=== PATIENT | male | born 1945 | race Caucasian/White ===

== ENCOUNTER → 2016-05-30 | Outpatient (CLI) | payer MEDICARE, BC ==
--- NOTE | 2016-05-30 13:09 | Diagnostic Imaging Report ---
Indications: Abdominal pain, aortic stenosis, abdominal aortic aneurysm Technique: Transabdominal real-time grayscale and duplex Doppler imaging of the upper abdomen and retroperitoneum was performed. Findings: Comparison: None. Liver 19 cm in length. Normal Surface contour, mildly increased and coarsened parenchymal echogenicity. Contains multiple circumscribed anechoic foci up to 3.5 cm. No solid focal lesions. Gallbladder unremarkable. No intraluminal stones or sludge. No mural thickening or adjacent fluid collections. Sonographic Al sign not reported.. Bile ducts normal caliber. Common bile duct 5 mm. Pancreas visualized portions unremarkable. Spleen 16 cm, no focal lesions.. Right kidney contains multiple circumscribed anechoic cortical foci up to 0.6 cm, otherwise unremarkable. Left kidney contains multiple circumscribed anechoic cortical foci up to 3.6 cm, otherwise unremarkable. Abdominal aorta, intrahepatic portion of inferior vena cava patent, normal caliber. Duplex Doppler imaging demonstrates antegrade flow in splenic, portal, hepatic veins. No ascites. IMPRESSION: No evidence of abdominal aortic aneurysm Hepatosplenomegaly with suggestion of chronic hepatocellular disease. Hepatic, bilateral renal cortical cysts
== END | disposition home or self-care (01) ==
LOC: ULS 09:25
DX: R10.9 Unspecified abdominal pain (principal); R16.2 Hepatomegaly with splenomegaly, not elsewhere classified; K76.89 Other specified diseases of liver; N28.1 Cyst of kidney, acquired
CPT/HCPCS: 76700

== ENCOUNTER 2016-09-29 09:04 | Outpatient (CLI) | payer MEDICARE, BC ==
--- NOTE | 2016-09-29 10:50 | Diagnostic Imaging Report ---
Indications: Cephalgia, history of transient ischemic attack May 2016 Technique: Sagittal and axial T1 weighted FLAIR, axial T2-weighted fat saturated fast spin echo propeller, T2-weighted FLAIR, T2*-weighted gradient echo, and diffusion sequences of the brain were performed without IV gadolinium administration. Findings: Comparison: None Suboptimal [id number] ratio degrades images and limits evaluation. Small circumscribed focus of signal change/parenchymal loss is present in the inferior aspect of the right cerebellar hemisphere. Small circumscribed foci of T2 signal hyperintensity are scattered throughout the bilateral cerebral deep and subcortical white matter.. No evidence of mass or hemorrhage, other signal abnormality, mass effect, midline shift, hydrocephalus, or increased intracranial pressure. No restricted diffusion. Central vascular flow voids are preserved. The periosteal thickening is present throughout the paranasal sinuses. 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
--- NOTE | 2016-09-29 10:58 | Diagnostic Imaging Report ---
Indications: Cephalgia, history of transient ischemic attack or 2017 Technique: Three-dimensional oxsi-wa-rchinl imaging of the central aspect of the intracranial arterial circulation was performed without IV gadolinium administration. Three-dimensional maximum intensity projection images were reconstructed from raw data obtained. Findings: Comparison: None Intracranial segments of both internal carotid arteries, A1 through a 3 segments of both anterior cerebral arteries, anterior communicating artery, M1 through L3 segments of both middle cerebral arteries, small left posterior communicating artery,intracranial segments of both vertebral arteries (left dominant), basilar artery, P1 through P4 segments of both posterior cerebral arteries and major central branches are patent and normal in caliber. Right posterior communicating artery not identified. A small widemouthed outpouching emanates from the distal supraclinoid segment of the left internal carotid artery, from which the left posterior communicating artery emanates. No significant stenosis, occlusion, dissection, other mural irregularity or intraluminal filling defect, aneurysm, vascular malformation, neovascularity, or arteriovenous shunting demonstrated. 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
== END 2016-09-29 11:04 | disposition home or self-care (01) ==
LOC: MRI 09:04
DX: R51 Headache (principal); Z86.73 Personal history of transient ischemic attack (TIA), and cerebral infarction without residual deficits; J32.9 Chronic sinusitis, unspecified
CPT/HCPCS: 70544; 70551